=== PATIENT | female | born 1995 | race Caucasian/White ===

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

== ENCOUNTER → 2019-11-17 | Outpatient (CLI) | payer SELFPAY ==
--- NOTE | 2019-11-17 16:46 | RADIOLOGY REPORT (SQ) ---
EXAM DESCRIPTION: U/S OB 14+ TRNABD 1GES W/O DOP IMAGES COMPLETED DATE/TIME: 11/17/2019 3:26 pm REASON FOR STUDY: Z34.82 ENCOUNTER FOR SUPRVSN OF NORMAL , SECOND TRIMESTER Z34.82 ENCOUNT ER FOR SUPRVSN OF NORMAL , SECOND TRI COMPARISON: None. TECHNIQUE: Static and Dynamic grayscale imaging performed of gravid uterus using transabdominal appr oach. Additional selected color Doppler and spectral images recorded. All stored on PACS. LIMITATIONS: None. FINDINGS: FETUSES SEEN:1 EGA: 20 weeks 4 days Calculated using BPD,FL,HC,AC documented on images. No discrepancy with clinica l dates. AGATHA: 04/01/2020 EFW: 369+ or -55 grams PERCENTILE: Not applicable JAMES: 16.7 cm PLACENTA: Posterior. Low lying, but there is no previa. PRESENTATION: Transverse. ANATOMY: HEART RATE: 165 beats per minute. FOUR CHAMBER HEART: Visualized. THREE VESSEL CORD: Yes. CORD INSERTION: Visualized. KIDNEYS AND BLADDER: Visualized. Appear normal. STOMACH: Visualized. Appears normal. SPINE: Normal as visualized. BRAIN AND LATERAL VENTRICLES: Visualized. Appear normal. OTHER: No other significant finding. MATERNAL ADNEXA: Maternal ovaries not visualized. CERVICAL LENGTH: 3.5 cm Closed. OTHER: No other significant finding. IMPRESSION: LIVING INTRAUTERINE . ESTIMATED GESTATIONAL AGE 20 weeks 4 days NO VISUALIZED ANOMALIES. Trimester of : Second trimester - 13 weeks 1 day to 27 weeks 6 days. TECHNICAL DOCUMENTATION: JOB ID: [id number] 2010 [employer]- All Rights Reserved Reading location - IP/workstation name: [email or web address]
== END ==
LOC: RAD 14:21
PROVIDERS: ATTEND Midwife
DX: O44.42 Low lying placenta NOS or without hemorrhage, second trimester (principal); Z3A.20 20 weeks gestation of pregnancy
CPT/HCPCS: 76805

== ENCOUNTER → 2020-03-27 | Outpatient (CLI) | payer SELFPAY ==
[2020-03-27 13:59] LABS: HEMOGLOBIN 11.4 g/dL (12.0-15.5); MEAN CORPUSCULAR HGB CONC 34.6 g/dL (32.0-36.0); MEAN CORPUSCULAR VOLUME 84 fl (80-97); PLATELET COUNT 371 10^3/uL (150-450); RED BLOOD COUNT 3.94 10^6/uL (3.72-5.28); RED CELL DISTRIBUTION WIDTH 14.6 % (11.5-14.0); WHITE BLOOD COUNT 10.4 10^3/uL (4.0-10.5)
[2020-03-27 14:23] LABS: ALBUMIN 3.5 g/dL (3.5-5.0); ALKALINE PHOSPHATASE 325 U/L (38-126); ANION GAP 12 (5-19); ASPARTATE AMINO TRANSFERASE 70 U/L (14-36); BILIRUBIN,DIRECT 0.1 mg/dL (0.0-0.4); BILIRUBIN,TOTAL 0.3 mg/dL (0.2-1.3); BLOOD UREA NITROGEN 15 mg/dL (7-20); CALCIUM 9.6 mg/dL (8.4-10.2); CARBON DIOXIDE 19 mmol/L (22-30); CHLORIDE 106 mmol/L (98-107); GLUCOSE 90 mg/dL (75-110); POTASSIUM 4.9 mmol/L (3.6-5.0); TOTAL PROTEIN 6.7 g/dL (6.3-8.2)
== END ==
LOC: OCH 13:12
PROVIDERS: ATTEND Midwife
DX: Z34.83 Encounter for supervision of other normal pregnancy, third trimester (principal)
CPT/HCPCS: 36415; 80053; 85027

== ENCOUNTER 2020-03-30 23:41 | Inpatient (IN) | payer SELFPAY ==
[2020-03-31] MEDS ORDERED: MISOPROSTOL 0.2 MG TABLET ONE (00:08)
[2020-03-31] MEDS ORDERED: LIDOCAINE 1% INJ-PF (10 MG/ML) 30 ML SDV ONE (00:08)
[2020-03-31] MEDS ORDERED: OXYTOCIN 10 UNIT/ML VIAL ONE (00:08)
[2020-03-31] MEDS ORDERED: OXYTOCIN/0.9 % SODIUM CHLORIDE 30 UNIT/500 ML RTUINJ ONE ×2 (00:08→02:58)
[2020-03-31] MEDS ORDERED: RINGERS SOLUTION,LACTATED 1,000 ML IV PRN (00:19)
[2020-03-31] MEDS ORDERED: RINGERS SOLUTION,LACTATED 1,000 ML IV ONE (00:19)
[2020-03-31 00:21] LABS: APPEARANCE,URINE SLIGHTLY-CLOUDY; BILIRUBIN,URINE NEGATIVE (NEGATIVE); COLOR,URINE YELLOW; GLUCOSE, URINE NEGATIVE (NEGATIVE); KETONES,URINE NEGATIVE (NEGATIVE); LEUKOCYTE ESTERASE,URINE SMALL (NEGATIVE); NITRITE,URINE NEGATIVE (NEGATIVE); PROTEIN,URINE 100 mg/dL (NEGATIVE); URINE SPECIFIC GRAVITY 1.026; UROBILINOGEN,URINE NEGATIVE mg/dL (<2.0)
[2020-03-31 00:44] LABS: URINE AMPHETAMINES SCREEN NEGATIVE; URINE BARBITURATES SCREEN NEGATIVE; URINE BENZODIAZEPINES SCREEN NEGATIVE; URINE COCAINE SCREEN NEGATIVE; URINE MARIJUANA (THC) SCREEN NEGATIVE; URINE METHADONE SCREEN NEGATIVE; URINE PHENCYCLIDINE SCREEN NEGATIVE
[2020-03-31 00:45] LABS: ABSOLUTE EOSINOPHILS # (AUTO) 0.1 10^3/uL (0.0-0.6); ABSOLUTE LYMPHOCYTES (AUTO) 2.9 10^3/uL (0.5-4.7); ABSOLUTE NEUT (AUTO) 15.5 10^3/uL (1.7-8.2); BASOPHILS % (AUTO) 0.2 % (0-2); EOSINOPHILS % (AUTO) 0.6 % (0-6); LYMPHOCYTES % (AUTO) 14.8 % (13-45); MEAN CORPUSCULAR HEMOGLOBIN 28.6 pg (27.0-33.4); MEAN CORPUSCULAR HGB CONC 34.3 g/dL (32.0-36.0); MEAN CORPUSCULAR VOLUME 83 fl (80-97); PLATELET COUNT 390 10^3/uL (150-450); RED CELL DISTRIBUTION WIDTH 14.6 % (11.5-14.0); SEGMENTED NEUTROPHILS % (AUTO) 79.4 % (42-78); TOTAL CELLS COUNTED % (AUTO) 100 %; WHITE BLOOD COUNT 19.5 10^3/uL (4.0-10.5)
[2020-03-31] MEDS ORDERED: IBUPROFEN 800 MG TABLET ONE (01:05)
--- NOTE | 2020-03-31 01:05 | Admission Physical ---
Datetime Report Generated by CPN: 03/31/2020 01:05 CURRENT ADMISSION Chief Complaint: Uterine Contractions Indication for Induction: Not Applicable Admit Impression : Term, Intrauterine ; Active Labor Admit Plan: Admit to Unit; Initiate Labor Protocol ALLERGIES Medication Allergies: No Medication Allergies: No Known Allergies (06/11/2016) Latex: No Latex Allergies OBSTETRICAL HISTORY EDC: 04/13/2020 00:00 : 2 Para: 1 Term: 1 : 0 SAB: 0 IAB: 0 Ectopic: 0 Livin Cesareans: 0 VBACs: 0 Multiple Births: 0 Gestational Diabetes: No Rh Sensitization: No Incompetent Cervix: No ANTONIO: No Infertility: No ART Treatment: No Uterine Anomaly: No IUGR: No Hx Previous C/S: No Macrosomia: No Hx Loss/Stillborn: No PIH: No Hx : No Placenta Previa/Abruption: No Depression/PP Depression: No PTL/PROM: No Post Hemorrhage: No Current Procedures: Ultrasound Obstetrical History Comments: - 2016 G2- Current MEDICAL HISTORY Diabetes: No Blood Transfusion: No Pulmonary Disease (Asthma, TB): No Breast Disease: No Hypertension: No Solar Tech Surgery: No Heart Disease: No Hosp/Surgery: Yes Autoimmune Disorder: No Anesthetic Complications: No Kidney Disease: No Abnormal Pap Smear: No Neuro/Epilepsy: No Psychiatric Disorders: No Other Medical Diseases: No Hepatitis/Liver Disease: No Significant Family History: No Varicosities/Phlebitis: No Trauma/Violence : No Thyroid Dysfunction: No Medical History Comments: child in 2016 INFECTIOUS HISTORY Gonorrhea: No Genital Herpes: No Chlamydia: No Tuberculosis: No Syphilis: No Hepatitis: No HIV/AIDS Exposure: No Rash or Viral Illness: No HPV: No PHYSICAL EXAM General: Normal HEENT: Normal Neurologic: Normal Thyroid: Normal Heart: Normal Lungs: Normal Breast: Deferred Back: Normal Abdomen: Normal Genitourinary Exam: Normal Extremities: Normal DTRs: Normal Pelvic Type: Adequate Vital Signs: Reviewed VAGINAL EXAM Dilatation: 10 Effacement: 100 Station: 1 MEMBRANES Pooling: Positive Membranes: Ruptured FETUS A EGA: 38.1 Monitoring: External US FHR- Baseline: 140 Variability: Moderate 6-25bpm Decelerations: None FHR Category: Category I Presentation: Vertex Admit Comment: admit for labor INFORMED CONSENT Signature: with User ID: DamSmith
[2020-03-31] MEDS ORDERED: NA PHOS,M-B/NA PHOS,DI-BA (ADULT) 133 ML ENEMA PR PRN (01:10)
[2020-03-31] MEDS ORDERED: PROMETHAZINE HCL INJ 25 MG/1 ML VIAL IV PRN (01:10)
[2020-03-31] MEDS ORDERED: OXYTOCIN/0.9 % SODIUM CHLORIDE 30 UNIT/500 ML RTUINJ IV PRN (01:10)
[2020-03-31] MEDS ORDERED: DIPHENHYDRAMINE HCL 25 MG CAPSULE PO PRN (01:10)
[2020-03-31] MEDS ORDERED: ACETAMINOPHEN 650 MG SUPP.RECT PR PRN (01:10)
[2020-03-31] MEDS ORDERED: PSEUDOEPHEDRINE HCL 30 MG TABLET PO PRN (01:10)
[2020-03-31] MEDS ORDERED: GLYCERIN/WITCH HAZEL LEAF 1 EACH MED..WIPE TP PRN (01:10)
[2020-03-31] MEDS ORDERED: DIPH/PERTUSS(ACELL)/TETANUS VAC/PF 0.5 ML SYR (>=10YO) IM PRN (01:10)
[2020-03-31] MEDS ORDERED: ACETAMINOPHEN WITH CODEINE #3 TABLET PO PRN ×2 (01:10)
[2020-03-31] MEDS ORDERED: PROMETHAZINE HCL 25 MG TABLET PO PRN (01:10)
[2020-03-31] MEDS ORDERED: MAGNESIUM HYDROXIDE SUSP 30 ML UDCUP PO PRN (01:10)
[2020-03-31] MEDS ORDERED: DIBUCAINE 1% OINTMENT 28 GM TP PRN (01:10)
[2020-03-31] MEDS ORDERED: MEASLES,MUMPS&RUBELLA VACC/PF 0.5 ML VIAL SUBCUT PRN (01:10)
[2020-03-31] MEDS ORDERED: PROMETHAZINE HCL 25 MG SUPP.RECT PR PRN (01:10)
[2020-03-31] MEDS ORDERED: ZOLPIDEM TARTRATE 5 MG TABLET PO PRN (01:10)
[2020-03-31] MEDS ORDERED: BENZOCAINE/MENTHOL AEROSOL SPRAY 56 ML TOP PRN (01:10)
--- NOTE | 2020-03-31 03:58 | Birth Certificate Data ---
Cert Data Datetime Report Generated by CPN: 03/31/2020 03:58 CERTIFICATE DATA Delivery Provider: Joanne Doss MD (03/30/2020 23:52:DILCIA Machado) 47a. Care: No (03/30/2020 23:52:Carolee Stark RN) 47b. Date of First Visit: 11/03/2019 00:00 (03/30/2020 23:52:Carolee Stark RN) 47c. Date of Last Visit: 03/27/2020 00:00 (03/30/2020 23:52:Carolee Stark RN) 48a. Number of Prev Live Births: 1 (03/30/2020 23:52:Carolee Stark RN) 48b. Now Livin (03/30/2020 23:52:Carolee Stark RN) 48c. Live Births Now : 0 (03/30/2020 23:52:QS system process) 48d. Date of Last Live : 06/11/2016 00:00 (03/30/2020 23:52:Carolee Stark RN) 48e. Losses: 0 (03/30/2020 23:52:Carolee Stark RN) RISK FACTORS IN THIS 49a. Diabetes: No (03/30/2020 23:52:Vero Alfonso RN) 49b. Hypertension: No (03/30/2020 23:52:Vero Alfonso RN) 49c. Previous Births: 0 (03/30/2020 23:52:Carolee Stark RN) 49d. Stillborns: No (03/30/2020 23:52:Vero Alfonso RN) 49d. IUGR: No (03/30/2020 23:52:Vero Alfonso RN) 49e. Infertility Treatment: No (03/30/2020 23:52:Vero Alfonso RN) 49f. Previous Cesareans: 0 (03/30/2020 23:52:Carolee Stark RN) Mother's Height 50b. Height Inches: 60 (03/31/2020 01:56:QS system process) Mother's Weight 51b. Weight at Delivery (lbs): 167 (03/31/2020 01:56:QS system process) 52. Dt Last Normal Menses Began: 06/28/2019 00:00 (03/30/2020 23:52:Carolee Stark RN) Infections Present/Treated 53a. Gonorrhea: No (03/30/2020 23:52:Vero Alfonso RN) 53b. Syphilis: No (03/30/2020 23:52:Vero Alfonso RN) 53c. Chlamydia: No (03/30/2020 23:52:Vero Alfonso RN) 53d. Hepatitis B: No (03/30/2020 23:52:Vero Alfonso RN) Results this Hospital Visit: Negative (03/30/2020 23:52:Carolee Stark RN) 53e. Hepatitis C: Negative (03/30/2020 23:52:Carolee Stark RN) 53h. Mother Tested for HBsAG: Yes (03/30/2020 23:52:Carolee Stark RN) 53i. Date Tested: 11/15/2019 00:00 (03/30/2020 23:52:Carolee Stark RN) 53j. Test Result: Negative (03/30/2020 23:52:Carolee Stark RN) Obstetric Procedures 54a, b, c. Obstetric Procedures: Ultrasound (03/30/2020 23:52:Vero Alfonso RN) Onset of Labor 56a. PROM >12 Hrs: 5.92 (03/31/2020 00:20:QS system process) 56b. Precipitous Labor <3 Hrs: 7 (03/30/2020 23:52:QS system process) 56c. Prolonged Labor > 20 Hrs: 7 (03/30/2020 23:52:QS system process) 57a. Induction of Labor: N/A (03/30/2020 23:52:DILCIA Machado) 57c. Non-Vertex Presentation A: Vertex (03/30/2020 23:52:DILCIA Machado) 57d. Steroids - Lung Mat: None (03/30/2020 23:52:DILCIA Machado) 57d. Steroids - Lung Mat: Not Applicable (03/30/2020 23:52:DILCIA Machado) 57f. Mat Chorio or Temp >100.4: 98.0 (03/30/2020 23:52:Carolee Stark RN) 57g. Moderate/Heavy Meconium: Clear (03/31/2020 00:20:Vero Alfonso RN) 57h. Intolerance of Labor: N/A (03/30/2020 23:52:Carolee Stark RN) : N/A (03/30/2020 23:52:Vero Alfonso RN) 57i. Epidural/Spinal Anesthesia: None (03/30/2020 23:52:DILCIA Machado) Method of Delivery 58a. Forceps - Unsuccessful A: N/A (03/30/2020 23:52:Belkys Rayo RNC) 58b. Vacuum - Unsuccessful A: N/A (03/30/2020 23:52:Belkys Rayo RNC) 58c. Presentation at 58c. Presentation at - A : Vertex (03/30/2020 23:52:Belkys Rayo, BRUNO) 58c. Presentation at - A : N/A (03/30/2020 23:52:Carolee Stark RN) 58c. Presentation at - A : Cephalic (03/30/2020 23:52:Belkys Rayo C) Final Route and Method of Del 58d. Baby A Route/Delivery: Vaginal (03/30/2020 23:52:Belkys Rayo RN) 58e. Trial of Labor Attempted: No (03/30/2020 23:52:Belkys Rayo, RNC) 58e. Trial of Labor Attempted A: N/A (03/30/2020 23:52:Belkys Bellavance, RNC) 58e. Trial of Labor Attempted B: N/A (03/30/2020 23:52:Belkys Bellavaelenae, RNC) Maternal Morbidity 59b. 3rd or 4th Degree Lacs: Perineal (03/30/2020 23:52:Joanne Doss MD (SMIDA)) Birthweight Baby A: 3200 (03/30/2020 23:52:Vero Alfonso RN) 60a. Pounds : 7 (03/30/2020 23:52:QS system process) 60b. Ounces: 1 (03/30/2020 23:52:QS system process) 61. GA at Delivery Baby A: 38.1 (03/30/2020 23:52:Belkys Rayo [facility]) : Early Term- 37- 38.6 Weeks (03/30/2020 23:52:QS system process) 62a. 5 Minute Baby A: 9 (03/30/2020 23:52:QS system process)
--- NOTE | 2020-03-31 03:58 | Delivery Summary ---
Del Sum A-C Datetime Report Generated by CPN: 03/31/2020 03:58 DELIVERY PERSONNEL DELIVERY PERSONNEL: [id number] Delivery Doctor:: Joanne Doss MD Labor and Delivery Nurse:: Vero Alfonso RNrib cutter Nurse:: Carolee Stark RN MATERNAL INFORMATION Delivery Anesthesia: None Medications After Delivery: Pitocin 10 Units IM; Pitocin 30 Units in 500ml NS/D5W; Cytotec 1000mcg Per Rectum/Vagina Estimated Blood Loss (ml): 250 Delivery QBL: 250 Maternal Complications: Precipitous Labor (<3hrs) LABOR SUMMARY EDC: 04/13/2020 00:00 No. Babies in Womb: 1 Attempted: No Labor Anesthesia: None LABOR INFORMATION Reason for Induction: Not Applicable Onset of Labor: 03/30/2020 17:00 Complete Dilatation: 03/31/2020 00:25 Oxytocin: N/A Group B Beta Strep: negative Antibiotics # of Doses: 0 Name of Antibiotic Given: n/a Steroids Given: None Reason Steroids Not Administered: Not Applicable MEMBRANES Membranes Rupture Method: Spontaneous Rupture of Membranes: 03/30/2020 19:00 Length of Rupture (hr): 5.92 Amniotic Fluid Color: Clear Amniotic Fluid Amount: Moderate Amniotic Fluid Odor: Normal STAGES OF LABOR Stage 1 hr: 7 Stage 1 min: 25 Stage 2 hr: 0 Stage 2 min: 30 Stage 3 hr: 0 Stage 3 min: 3 Total Time in Labor hr: 7 Total Time in Labor min: 58 VAGINAL DELIVERY Episiotomy: None Laceration #1: Perineal Laceration Extension #1: First Degree Laceration #2: None Laceration Extension #2: N/A Laceration #3: None Laceration Extension #3: N/A Laceration Repair: Yes Laceration Repair Note: repair of small perineal laceration with one suture of 3-0 chromic Sponge Count Correct: Vaginal Sweep Performed Sharps Count Correct: Yes CSECTION DELIVERY Primary Indication: N/A Secondary Indication: N/A CSection Incidence: N/A Labor: N/A Elective: N/A CSection Incision: N/A BABY A INFORMATION Delivery Date/Time: 03/31/2020 00:55 Method of Delivery: Vaginal Nurse Controlled Delivery: No Born in Route : No : N/A Forceps: N/A Vacuum Extraction: N/A Shoulder Dystocia : No PRESENTATION/POSITION BABY A Presentation: Cephalic Cephalic Presentation: Vertex Vertex Position: Left Occipital Anterior Breech Presentation: N/A PLACENTA INFORMATION BABY A Placenta Delivery Time : 03/31/2020 00:58 Placenta Method of Delivery: Spontaneous Placenta Status: Delivered SCORES BABY A Heart Rate 1 min: >100 bpm Resp Effort 1 min: Good Cry Reflex Irritability 1 min: Cough or Sneeze or Pulls Away Muscle Tone 1 min: Active Motion Color 1 min: Body [place], Extremities Blue Resuscitation Effort 1 min: Tactile Stimulation SCORE 1 MIN: 9 Heart Rate 5 min: >100 bpm Resp Effort 5 min: Good Cry Reflex Irritability 5 min: Cough or Sneeze or Pulls Away Muscle Tone 5 min: Active Motion Color 5 min: Body [place], Extremities Blue Resuscitation Effort 5 min: Tactile Stimulation SCORE 5 MIN: 9 INFORMATION BABY A Gestational Age at Delivery: 38.1 Gestational Status: Early Term- 37- 38.6 Weeks Infant Outcome : Liveborn Condition : Stable Sex: Female IDENTIFICATION BABY A Infant Verification Date/Time: 03/31/2020 01:16 ID Band Number: [id number] Mother's Name Verified: Yes Infant RN Verifying Infant: Marcelo Alfonso, RN Additional Verifying Personnel: D Perri, C WEIGHT/LENGTH BABY A Infant Birthweight (gm): 3200 Weight (lb): 7 Weight (oz): 1 Length (in): 19.75 Length (cm): 50.17 CORD INFORMATION BABY A No. Cord Vessels: 3 Nuchal Cord : N/A Cord Blood Taken: Yes-For Eval (Mom's Blood Type - or O+) Infant Suction: None ASSESSMENT BABY A Infant Complications: None Physical Findings at Delivery: Within Normal Limits Infant Respirations: Appears Normal Skin to Skin: Yes Skin to Skin Time (min): 60 Public Health Service Officer/ALS Called : No Infant Care By: RKey Udaygia, RN Transferred To: Remains with Mother BABY B INFORMATION : N/A SIGNATURES Signature: with User ID: [email or web address]
[2020-03-31 04:14] LABS: CHLAM PCR NOT DETECTED (NOT DETECT)
[2020-03-31] MEDS: IBUPROFEN 800 MG TABLET PO SCH ×3 (05:36→22:08)
[2020-03-31] MEDS: DOCUSATE SODIUM 100 MG CAPSULE PO SCH ×2 (11:08→19:04)
[2020-03-31] MEDS: SENNOSIDES/DOCUSATE 8.6-50 MG 1 EACH TABLET PO SCH (11:08)
[2020-03-31] MEDS: FERROUS SULFATE 325 MG TABLET PO SCH ×2 (11:08→19:04)
[2020-03-31] MEDS: PRENATAL VITAMIN W DHA CAPSULE PO SCH (11:08)
[2020-03-31] MEDS: FAMOTIDINE 20 MG TABLET PO SCH ×2 (11:08→22:08)
[2020-04-01] MEDS: IBUPROFEN 800 MG TABLET PO SCH (05:09)
[2020-04-01] MEDS ORDERED: INFLUENZA QUAD (6MOS+) 2020-21 VAC 0.5 ML SYR IM ONE (08:00)
[2020-04-01 08:19] VITALS: BP 111/78
[2020-04-01] MEDS: FERROUS SULFATE 325 MG TABLET PO SCH (09:22)
[2020-04-01] MEDS: DOCUSATE SODIUM 100 MG CAPSULE PO SCH (09:22)
[2020-04-01] MEDS: PRENATAL VITAMIN W DHA CAPSULE PO SCH (09:22)
[2020-04-01] MEDS: SENNOSIDES/DOCUSATE 8.6-50 MG 1 EACH TABLET PO SCH (09:22)
[2020-04-01] MEDS: FAMOTIDINE 20 MG TABLET PO SCH (09:22)
--- NOTE | 2020-04-01 12:24 | PDOC DISCHARGE SUMMARY ---
Impression - Admit/DC Date/PCP Admission Date/Primary Care Provider: 03/31/20 00:09 ANTIONETTE SMITH CNM Discharge Date: 04/01/20 - Discharge Diagnosis (1) First degree perineal laceration Is this a current diagnosis for this admission?: Yes (2) Anemia Is this a current diagnosis for this admission?: Yes (3) Limited care Is this a current diagnosis for this admission?: Yes (4) Normal vaginal delivery Is this a current diagnosis for this admission?: Yes - Additional Information Resuscitation Status: Full Code Discharge Diet: Regular Discharge Activity: Balance Activity w/Rest, Pelvic Rest Referrals: ANTIONETTE SMITH CNM [Primary Care Provider] - Prescriptions: Ibuprofen [Motrin 800 mg Tablet] 800 mg PO Q8HP PRN #60 tablet PRN Reason: For Pain Home Medications: Pnv95/Iron Fum/Folic Acid [ Caplet] 1 tab PO DAILY 06/11/16 Ibuprofen [Motrin 800 mg Tablet] 800 mg PO Q8HP PRN #60 tablet 04/01/20 HPI Gestational Age: 38.2 Reason(s) for Admission: Onset of Labor Procedures: NST Intrapartum Procedure(s): Spontaneous Vaginal Delivery Complication(s): Laceration-Perineal Laceration-Degree: 1st Hospital Course 59. Maternal Morbidity (serious complications experinced by the mother associated with labor and delivery: None of the above Results Laboratory Results: WBC 19.5 10^3/uL (4.0-10.5) H 03/31/20 00:33 RBC 4.20 10^6/uL (3.72-5.28) 03/31/20 00:33 Hgb 12.0 g/dL (12.0-15.5) 03/31/20 00:33 Hct 35.0 % (36.0-47.0) L 03/31/20 00:33 MCV 83 fl (80-97) 03/31/20 00:33 MCH 28.6 pg (27.0-33.4) 03/31/20 00:33 MCHC 34.3 g/dL (32.0-36.0) 03/31/20 00:33 RDW 14.6 % (11.5-14.0) H 03/31/20 00:33 Plt Count 390 10^3/uL (150-450) 03/31/20 00:33 Lymph % (Auto) 14.8 % (13-45) 03/31/20 00:33 [place] % (Auto) 5.0 % (3-13) 03/31/20 00:33 Eos % (Auto) 0.6 % (0-6) 03/31/20 00:33 Baso % (Auto) 0.2 % (0-2) 03/31/20 00:33 Absolute Neuts (auto) 15.5 10^3/uL (1.7-8.2) H 03/31/20 00:33 Absolute Lymphs (auto) 2.9 10^3/uL (0.5-4.7) 03/31/20 00:33 Absolute Monos (auto) 1.0 10^3/uL (0.1-1.4) 03/31/20 00:33 Absolute Eos (auto) 0.1 10^3/uL (0.0-0.6) 03/31/20 00:33 Absolute Basos (auto) 0.0 10^3/uL (0.0-0.2) 03/31/20 00:33 Seg Neutrophils % 79.4 % (42-78) H 03/31/20 00:33 Urine Color YELLOW 03/30/20 23:50 Urine Appearance SLIGHTLY-CLOUDY 03/30/20 23:50 Urine pH 6.0 (5.0-9.0) 03/30/20 23:50 Ur Specific [place] 1.026 03/30/20 23:50 Urine Protein 100 mg/dL (NEGATIVE) H 03/30/20 23:50 Urine Glucose (UA) NEGATIVE mg/dL (NEGATIVE) 03/30/20 23:50 Urine Ketones NEGATIVE mg/dL (NEGATIVE) 03/30/20 23:50 Urine Blood MODERATE (NEGATIVE) H 03/30/20 23:50 Urine Nitrite NEGATIVE (NEGATIVE) 03/30/20 23:50 Urine Bilirubin NEGATIVE (NEGATIVE) 03/30/20 23:50 Urine Urobilinogen NEGATIVE mg/dL (<2.0) 03/30/20 23:50 Ur Leukocyte Esterase SMALL (NEGATIVE) H 03/30/20 23:50 Urine Ascorbic Acid NEGATIVE (NEGATIVE) 03/30/20 23:50 Urine Opiates Screen NEGATIVE 11/05/20 23:50 Urine Methadone Screen NEGATIVE 03/30/20 23:50 Ur Barbiturates Screen NEGATIVE 03/30/20 23:50 Ur Phencyclidine Scrn NEGATIVE 03/30/20 23:50 Ur Amphetamines Screen NEGATIVE 03/30/20 23:50 U Benzodiazepines Scrn NEGATIVE 03/30/20 23:50 Urine Cocaine Screen NEGATIVE 03/30/20 23:50 U Marijuana (THC) Screen NEGATIVE 03/30/20 23:50 RPR NONREACTIVE (NONREACTIVE) 03/31/20 00:33 Chlamydia DNA (PCR) NOT DETECTED (NOT DETECT) 03/31/20 02:30 N.gonorrhoeae DNA (PCR) NOT DETECTED (NOT DETECT) 03/31/20 02:30 Blood Type O POSITIVE 03/31/20 00:33 Antibody Screen NEGATIVE 03/31/20 00:33 Plan Plan of Treatment: f/u at [facility] for PPCK 4 wks Time Spent: Less than 30 Minutes
[2020-04-01 12:42] LABS: ABSOLUTE BASOPHILS # (AUTO) 0.1 10^3/uL (0.0-0.2); ABSOLUTE EOSINOPHILS # (AUTO) 0.3 10^3/uL (0.0-0.6); ABSOLUTE LYMPHOCYTES (AUTO) 2.8 10^3/uL (0.5-4.7); ABSOLUTE MONOCYTES (AUTO) 0.7 10^3/uL (0.1-1.4); ABSOLUTE NEUT (AUTO) 13.8 10^3/uL (1.7-8.2); BASOPHILS % (AUTO) 0.3 % (0-2); EOSINOPHILS % (AUTO) 1.6 % (0-6); HEMATOCRIT 27.7 % (36.0-47.0); LYMPHOCYTES % (AUTO) 15.8 % (13-45); MEAN CORPUSCULAR HEMOGLOBIN 29.4 pg (27.0-33.4); MEAN CORPUSCULAR VOLUME 84 fl (80-97); PLATELET COUNT 394 10^3/uL (150-450); RED BLOOD COUNT 3.29 10^6/uL (3.72-5.28); RED CELL DISTRIBUTION WIDTH 15.1 % (11.5-14.0); SEGMENTED NEUTROPHILS % (AUTO) 78.3 % (42-78); TOTAL CELLS COUNTED % (AUTO) 100 %; WHITE BLOOD COUNT 17.6 10^3/uL (4.0-10.5)
[2020-04-01 12:43] LABS: HEMOGLOBIN 9.7 g/dL (12.0-15.5)
== END 2020-04-01 13:17 | disposition home or self-care (01) | DRG 807 ==
LOC: LC 23:41 → LR 03-31 00:09 → 2S 03-31 04:03
PROVIDERS: ADMIT Obstetrics & Gynecology; ATTEND Obstetrics & Gynecology
PROC: 10E0XZZ Delivery of Products of Conception, External Approach (ICD-10-PCS; principal; 2020-03-31)
PROC: 0HQ9XZZ Repair Perineum Skin, External Approach (ICD-10-PCS; 2020-03-31)
PROC: 3E02340 Introduction of Influenza Vaccine into Muscle, Percutaneous Approach (ICD-10-PCS; 2020-04-01)
DX: O99.02 Anemia complicating childbirth (principal); Z37.0 Single live birth; O70.0 First degree perineal laceration during delivery; D64.9 Anemia, unspecified; O62.3 Precipitate labor; Z20.828 Contact with and (suspected) exposure to other viral communicable diseases; Z23 Encounter for immunization; Z3A.38 38 weeks gestation of pregnancy
CPT/HCPCS: 36415; 80307; 81005; 85025; 86592; 86850; 86900; 86901; 87491; 87591; 90471; 90686; G0008; J2590; J3490